=== PATIENT | male | born 1950 | race African-American/Black ===

== ENCOUNTER 2017-08-03 13:16 | Emergency (ER) | payer OTHER ==
[~2017-08-03] VITALS: Ht 175.3 cm; Wt 90.7 kg
[~2017-08-03 13:16] MED LIST: CASODEX 50 MG T50 M1 PO; NEXIUM40 MG PO; OMEGA-31000 M1 PO; ROSUVASTATIN CA20 MG PO; ZYRTEC10 M2 PO; [UNRECOGNIZED DRUG - SUPPLY] PO
== END 2017-08-03 15:14 | disposition home or self-care (01) ==
LOC: ER 13:16
DX: S06.0X9A Concussion with loss of consciousness of unspecified duration, initial encounter (principal); Z88.8 Allergy status to other drugs, medicaments and biological substances; Z91.013 Allergy to seafood; W01.0XXA Fall on same level from slipping, tripping and stumbling without subsequent striking against object, initial encounter; Y93.89 Activity, other specified; Y92.89 Other specified places as the place of occurrence of the external cause; Y99.8 Other external cause status